=== PATIENT | male | born 1945 | race Two or more races ===

== ENCOUNTER 2018-03-09 10:12 | Inpatient (IN) | payer MEDICARE, OTHER ==
[~2018-03-09] VITALS: Ht 162.6 cm; Wt 56.2 kg
[~2018-03-09 10:12] MED LIST: ALEN70TA45 PO; ASPI-605 PO; ATEN25TA PO; ATOR20TA PO; BENA20TA9 PO; DEXL60CA3 PO; DUTA0.5C PO; GABA-532 PO; IBUP-1957 PO; ISOS30TA6 PO; TAMS0.4C34 PO
--- NOTE | 2018-03-09 10:15 | NUR ---
PT BIB C/O PAIN DURING URINATION, +HEMATURIA, HX OF ENLARGE PROSTATE, PT IS AAOX4, NOT IN RESPIRATORY DISTRESS, KEPT RESTED AND COMFORTABLE, URINE COLLECTED AND SENT TO LAB, WILL CONTINUE TO MONITOR.
--- NOTE | 2018-03-09 10:18 | NUR ---
LABS DRAWNED AND SENT TO LAB.
[2018-03-09] MEDS ORDERED: LIDOCAINE 2% JEL UROJET 10 ML MM ONE ×2 (10:30→10:35)
[2018-03-09 10:36] LABS: BASOPHILS # (AUTO) 0.1 /CMM (0.0-0.2); BASOPHILS % (AUTO) 0.2 % (0.0-2.0); HEMATOCRIT 42 % (39-51); LYMPHOCYTES # (AUTO) 0.9 /CMM (0.8-4.8); LYMPHOCYTES % (AUTO) 2.8 % (20.0-44.0); MEAN CORPUSCULAR HGB CONC 33 g/dl (31.0-36.0); MEAN CORPUSCULAR VOLUME 96 fL (80-96); MONOCYTES # (AUTO) 1.3 /CMM (0.1-1.30); MONOCYTES % (AUTO) 4.2 % (2.0-12.0); NEUTROPHILS # (AUTO) 28.9 /CMM (1.8-8.9); NEUTROPHILS % (AUTO) 92.8 % (43.0-81.0); PLATELET COUNT (AUTO) 517 /CMM (150-450); RED BLOOD CELL COUNT(AUTO) 4.41 MIL/uL (4.5-6.0)
[2018-03-09 10:36] LABS: APPEARANCE,URINE Cloudy (CLEAR); BILIRUBIN,URINE Negative (NEGATIVE); BLOOD, URINE Large Ery/uL (NEGATIVE); COLOR,URINE Yellow (YELLOW); KETONES,URINE 40 (NEGATIVE); LEUKOCYTE ESTERASE ,URINE Small (NEGATIVE); NITRITE, URINE Negative (NEGATIVE); PH,URINE 5.5 (5.0-8.0); PROTEIN,URINE 30 mg/dl (NEGATIVE); UGLUCOSE Negative (NEGATIVE); UROBILINOGEN,URINE 0.2 EU/dL (0.2)
[2018-03-09 10:39] LABS: WHITE BLOOD COUNT (AUTO) 31.1 K/uL (4.3-11.0)
[2018-03-09 10:44] LABS: CALCIUM, SERUM 8.7 mg/dL (8.5-10.1); CREATININE 0.8 mg/dL (0.6-1.3); POTASSIUM 3.9 mmol/L (3.5-5.1)
[2018-03-09 10:56] LABS: BACTERIA,URINE Many /HPF (None Seen); SQUAMOUS EPITHELIAL CELL,UR Few /HPF (None Seen); WBC,URINE 21-50 /HPF (0-3)
[2018-03-09] MEDS ORDERED: ACETAMINOPHEN ES 500 MG TABLET PO ONE (11:00)
[2018-03-09] MEDS ORDERED: PIPERACILLIN /TAZOBACTAM 3.375 G in IV D5W 50 ML IV ONE (11:00)
[2018-03-09] MEDS ORDERED: IV NS 0.9% 1,000 ML BAG IV ONE ×2 (11:00)
[2018-03-09] MEDS ORDERED: ACETAMINOPHEN ES 500 MG TABLET ONE (11:02)
[2018-03-09 11:19] LABS: BAND % (MANUAL) 2 % (0.0-5.0); LYMPHOCYTES % (MANUAL) 3 % (16-48); MONOCYTES % (MANUAL) 5 % (0-11.0); NEUTROPHILS % (MANUAL) 90 (42-76)
--- NOTE | 2018-03-09 11:19 | NUR ---
RODBUSTER AT BEDSIDE.
[2018-03-09 11:26] LABS: ALANINE AMINOTRANSFERASE 38 U/L (12-78); ALBUMIN 3.3 g/dL (3.4-5.0); ALKALINE PHOSPHATASE 106 U/L (46-116); ASPARTATE AMINOTRANSFERASE 19 U/L (15-37); BILIRUBIN,DIRECT 0.2 mg/dL (0.0-0.2); TOTAL PROTEIN, SERUM 7.7 g/dL (6.4-8.2)
[2018-03-09] MEDS ORDERED: OMEG-167 PO (11:52)
--- NOTE | 2018-03-09 12:12 | NUR ---
URINARY OUTPUT OF 35OML REFERRED TO DR. CRUZ.
--- NOTE | 2018-03-09 12:12 | NUR ---
Chika davis in ED - 03/09/18 at 1212 by QUAN URINARY OUTPUT OF 35OML REFERRED TO DR. CRUZ.
--- NOTE | 2018-03-09 13:35 | NUR ---
CALLED [facility]- POWER SHOVEL OPERATOR HELPER PEREZ FOR THIS PATIENT.
--- NOTE | 2018-03-09 13:42 | NUR ---
CALLED NURSING SUP FOR MED SURG BED FOR THIS PATIENT.
--- NOTE | 2018-03-09 13:53 | NUR ---
PT ADMIT TO ROOM 326-1 MED SURG DX PYELONEPHRITIS ADMITTING MARIAH TODD
--- NOTE | 2018-03-09 14:26 | NUR ---
REPORT GIVEN TO MARTY GUILLEN FOR VIDHYA.
--- NOTE | 2018-03-09 14:33 | NUR ---
MS substance abuse prevention coordinator Note Patient received via rsan antonio in stable condition via ED, c/o urinary retention. Patient is currently awake and resting in bed. Alert and oriented x 4. Primarily Azeri speaking. Able to make needs known, no signs of distress at this time. Complains of bilateral flank pain. Respirations even and unlabored, saturating on room air. Peripheral IV to the left AC 18 gauge, intact, patent and saline locked. 16 Fr [address] catheter in place, intact and patent, draining clear, yellow urine. Skin assessment completed and intact. Patient's personal belongings accounted for and acknowledged via form. Will carry out admission orders. Safety and Fall precautions in place: bed in lowest and locked position, side rails up x2, call light and personal possessions within reach. Patient and family oriented to room and safety measures, patient verbalized understanding of safety measures and current plan of care. Family member currently at bedside. Will continue to monitor and intervene as needed.
[2018-03-09 14:45] VITALS: BP 168/73
[2018-03-09 15:00] VITALS: BP 162/68
[2018-03-09] MEDS ORDERED: ALENDRONATE 70 MG TABLET PO SCH (15:00)
[2018-03-09] MEDS ORDERED: HYDROCODONE/APAP 10/325MG 1 EA TABLET PO PRN (15:00)
[2018-03-09] MEDS ORDERED: Z GUARD REMEDY 2 OZ OINT TP PRN (15:00)
[2018-03-09] MEDS ORDERED: GABAPENTIN 100 MG CAPSULE PO PRN (15:00)
[2018-03-09] MEDS ORDERED: ONDANSETRON HCL/PF 4 MG/2 ML VIAL IVP PRN (15:00)
[2018-03-09] MEDS ORDERED: ZOLPIDEM TARTRATE 5 MG TABLET PO PRN (15:00)
[2018-03-09 16:00] VITALS: BP 162/68
[2018-03-09] MEDS ORDERED: CEFTRIAXONE 1 G in IV D5W 50 ML IV SCH (16:00)
--- NOTE | 2018-03-09 16:00 | NUR ---
MS WILMER Note Patient BP on admission to unit of 168/73, follow-up BP of 162/68. Dr. Nagel notified of high BP, ordered Norvasc 5 mg PO now and Norvasc 5 mg PO daily for HTN. Noted and will carry out. Addendum: 03/09/18 at 1939 by RACHEL NAJERA RN After medication given, BP was 142/68.
[2018-03-09] MEDS ORDERED: AMLODIPINE BESYLATE 5 MG TABLET PO ONE (16:30)
[2018-03-09 19:00] VITALS: BP 142/68
--- NOTE | 2018-03-09 19:00 | NUR ---
MS RN Closing Note Patient is currently asleep, resting in bed but easily arousable to name. Alert and oriented x 4. Primarily Guatemalan speaking. Able to make needs known, no complaints of pain or signs of distress at this time. Respirations even and unlabored, saturating on room air. Peripheral IV to the left AC 18 gauge, intact, patent and running NS at 75 ml/hr. Horne catheter in place, intact and patent, draining clear, yellow urine: 1,425 ml out since patient came from ED. All due medication given and admission orders carried out. Pain managed with PRN medications. Safety and Fall precautions in place: bed in lowest and locked position, side rails up x2, call light and personal possessions within reach. Patient verbalized understanding of safety measures and current plan of care. Family member, Lucy (spouse) currently at bedside. Will endorse to night time babysitter RN for continuity of care.
--- NOTE | 2018-03-09 19:42 | NUR ---
MS/RN OPENING NOTES RECEIVED PATIENT IN BED, ALERT, ORIENTED X3, ABLE TO FOLLOW SIMPLE COMMANDS, CAN UNDERSTAND SIMPLE INSTRUCTIONS , RESPIRATIONS EVEN AND UNLABORED, SKIN WARM TO TOUCH, NO PAIN REPORTED AND OBSERVED AT THIS TIME., WILL MONITOR. CALL LIGHTS WITHIN REACH, BED LOCKED WILL MONITOR., ON ANG CATHETER DRAINING URINE. WILL MONITOR FOR ANY S/S OF URINE RETENTION OR ANY CHANGES.
[2018-03-09 19:56] VITALS: BP 142/64
[2018-03-09 19:59] VITALS: BP 142/64
[2018-03-09] MEDS: ATORVASTATIN 10 MG TABLET PO SCH (21:01)
[2018-03-09] MEDS: ACETAMINOPHEN 325 MG TABLET PO PRN (21:01)
[2018-03-10 04:02] VITALS: BP 142/64
[2018-03-10] MEDS: IV NS 0.9% 1,000 ML IV PRN ×2 (05:17→18:31)
--- NOTE | 2018-03-10 06:20 | NUR ---
326-1 MS/RN NOTES PATIENT ALERT, ORIENTED, ABLE TO SLEEP DURING THE NIGHT, CAM AND COOPERATIVE TO CARE, CALL LIGTHS WITHIN REACH, BED LOCKED, KEEP COMFORTABLE.
[2018-03-10 07:32] LABS: EOSINOPHILS % (AUTO) 0.1 % (0.0-6.0); HEMATOCRIT 35 % (39-51); HEMOGLOBIN 11.8 g/dL (13.5-17.5); LYMPHOCYTES # (AUTO) 0.9 /CMM (0.8-4.8); LYMPHOCYTES % (AUTO) 2.8 % (20.0-44.0); MEAN CORPUSCULAR HGB CONC 33 g/dl (31.0-36.0); MEAN CORPUSCULAR VOLUME 95 fL (80-96); MONOCYTES # (AUTO) 1.4 /CMM (0.1-1.30); MONOCYTES % (AUTO) 4.3 % (2.0-12.0); NEUTROPHILS % (AUTO) 92.8 % (43.0-81.0); PLATELET COUNT (AUTO) 407 /CMM (150-450); RED BLOOD CELL COUNT(AUTO) 3.75 MIL/uL (4.5-6.0)
--- NOTE | 2018-03-10 07:34 | NUR ---
MS RN Opening Note Patient is currently asleep, resting in bed but easily arousable to name. Alert and oriented x 4. Primarily Singaporean speaking. Able to make needs known, no complaints of pain or signs of distress at this time. Respirations even and unlabored, saturating on room air. Peripheral IV to the left AC 18 gauge, intact, patent and running NS at 75 ml/hr. Horne catheter in place, intact and patent, draining clear, yellow urine. Safety and Fall precautions in place: bed in lowest and locked position, side rails up x2, call light and personal possessions within reach. Patient verbalized understanding of safety measures and current plan of care. Will continue to monitor and intervene as needed.
[2018-03-10 07:44] LABS: WHITE BLOOD COUNT (AUTO) 33.4 K/uL (4.3-11.0)
[2018-03-10 07:52] LABS: ALBUMIN 2.5 g/dL (3.4-5.0); BILIRUBIN,TOTAL 1.3 mg/dL (0.2-1.0); CALCIUM, SERUM 8.1 mg/dL (8.5-10.1); CREATININE 0.7 mg/dL (0.6-1.3); PHOSPHORUS 1.9 mg/dL (2.5-4.9); POTASSIUM 3.5 mmol/L (3.5-5.1); TOTAL PROTEIN, SERUM 6.4 g/dL (6.4-8.2)
[2018-03-10 07:55] LABS: THYROID STIMULATING HORMONE 0.692 uIU/mL (0.358-3.74)
[2018-03-10 08:00] VITALS: BP 137/67
[2018-03-10 08:11] VITALS: BP 137/67
[2018-03-10 08:17] LABS: BAND % (MANUAL) 1 % (0.0-5.0); LYMPHOCYTES % (MANUAL) 4 % (16-48); MONOCYTES % (MANUAL) 4 % (0-11.0); NEUTROPHILS % (MANUAL) 91 (42-76)
[2018-03-10] MEDS: TAMSULOSIN 0.4 MG CAP.SR.24H PO SCH (08:35)
[2018-03-10] MEDS: DUTASTERIDE (0.5 MG) 0.5 MG CAPSULE PO SCH (08:35)
[2018-03-10] MEDS: ASPIRIN EC 81 MG TABLET.DR PO SCH (08:35)
[2018-03-10] MEDS: AMLODIPINE BESYLATE 5 MG TABLET PO SCH (08:36)
[2018-03-10] MEDS: ISOSORBIDE MONONITRATE (30MG) 30 MG TAB.SR.24H PO SCH (08:36)
[2018-03-10] MEDS: ATENOLOL 25 MG TABLET PO SCH (08:36)
[2018-03-10] MEDS: BENAZEPRIL HCL 20 MG TABLET PO SCH (08:37)
[2018-03-10] MEDS: ACETAMINOPHEN 325 MG TABLET PO PRN (11:45)
[2018-03-10] MEDS: MEROPENEM 1 G in IV NS 0.9% 100 ML IV SCH (12:40)
[2018-03-10] MEDS ORDERED: K PHOS NEUTRAL 250 MG TABLET PO ONE (15:00)
[2018-03-10 16:00] VITALS: BP 95/47
[2018-03-10 16:07] VITALS: BP 95/47
--- NOTE | 2018-03-10 18:18 | NUR ---
MS RN Closing Note Patient is currently asleep, resting in bed but easily arousable to name. Alert and oriented x 4. Primarily Vietnamese speaking. Able to make needs known, no complaints of pain or signs of distress at this time. Respirations even and unlabored, saturating on room air. Peripheral IV to the left AC 18 gauge, intact, patent and running NS at 75 ml/hr. Horne catheter in place, intact and patent, draining clear, yellow urine. No fever this shift. At 1600, BP of 85/46 and recheck of 95/47, placed patient in Trendelenburg position and increased fluids to 100 ml/hr. BP recheck of 105/55, patient asymptomatic. Safety and Fall precautions in place: bed in lowest and locked position, side rails up x2, call light and personal possessions within reach. Patient verbalized understanding of safety measures and current plan of care. Family (son - Misha) currently at bedside. Will endorse to cnc machinist 2nd shift RN for continuity of care.
--- NOTE | 2018-03-10 19:20 | NUR ---
MS RN OPENING NOTES Received patient asleep on supine position on bed, easily arouse to name calling. With patent peripheral IV line LAC G#18 with NS infusing well @ 75ml/hr as ordered. With patent indwelling FC with clear yellow urine output. Denies discomfort at this time. No SOB/respiratory distress noted. Call light within easy reach. Will continue to monitor accordingly.
[2018-03-10 20:00] VITALS: BP 113/56
[2018-03-10] MEDS: ATORVASTATIN 10 MG TABLET PO SCH (21:22)
--- NOTE | 2018-03-10 23:23 | NUR ---
MS RN NOTES Patient asleep on supine position on bed with patent IV line infusing well as ordered. Breathing even and unlabored with visible movement with respiration. Endorsed to WILMER Burnham for continuity of care.
[2018-03-11] MEDS: MEROPENEM 1 G in IV NS 0.9% 100 ML IV SCH ×2 (01:01→12:39)
--- NOTE | 2018-03-11 06:11 | NUR ---
RN MS CLOSING NOTES PT REMAINS IN BED, SLEEPING EASILY AROUSED TO NAME CALL, BREATHING EVEN AND UNLABORED ON RA, NO COUGH OR CONGESTION, NO COMPLAINT OF PAIN OR DISCOMFORT AT THIS TIME. IV ACCESS ON THE L AC #18 WITH NS @75ML/HR AND TOLERATING. ANG CATH IN PLACE AND COLLECTING, CLEAR YELLOW NO SEDIMENTS, TOTAL OUTPUT OF 1600ML. BED IN LOWEST LOCKED POSITION, CALL LIGHT WITHIN REACH AT ALL TIMES, NO SIGNIFICANT CHANGE IN CONDITION DURING SHIFT, WILL ENDORSE TO DAY NURSE FOR VIDHYA
[2018-03-11 07:34] LABS: CALCIUM, SERUM 7.4 mg/dL (8.5-10.1); CREATININE 0.7 mg/dL (0.6-1.3); PHOSPHORUS 1.9 mg/dL (2.5-4.9); POTASSIUM 3.2 mmol/L (3.5-5.1)
--- NOTE | 2018-03-11 07:55 | NUR ---
MS RN Opening Note Patient is currently asleep, resting in bed but easily arousable to name. Alert and oriented x 4. Primarily Icelandic speaking. Able to make needs known, no complaints of pain or signs of distress at this time. Respirations even and unlabored, saturating on room air. Peripheral IV to the left AC 18 gauge, intact, patent and running NS at 75 ml/hr. Horne catheter in place, intact and patent, draining clear, yellow urine. Safety and Fall precautions in place: bed in lowest and locked position, side rails up x2, call light and personal possessions within reach. Patient verbalized understanding of safety measures and current plan of care. Family to visit bedside later this shift. Will continue to monitor and intervene as needed.
[2018-03-11 08:00] VITALS: BP 126/65
[2018-03-11] MEDS: ISOSORBIDE MONONITRATE (30MG) 30 MG TAB.SR.24H PO SCH (09:00)
[2018-03-11] MEDS: BENAZEPRIL HCL 20 MG TABLET PO SCH (09:00)
[2018-03-11] MEDS: ASPIRIN EC 81 MG TABLET.DR PO SCH (09:26)
[2018-03-11] MEDS: DUTASTERIDE (0.5 MG) 0.5 MG CAPSULE PO SCH (09:26)
[2018-03-11] MEDS: TAMSULOSIN 0.4 MG CAP.SR.24H PO SCH (09:26)
[2018-03-11] MEDS: AMLODIPINE BESYLATE 5 MG TABLET PO SCH (09:29)
[2018-03-11] MEDS: ATENOLOL 25 MG TABLET PO SCH (09:30)
[2018-03-11] MEDS: POTASSIUM CHLORIDE 20 MEQ TAB.PRT.SR PO SCH ×2 (11:27→12:38)
[2018-03-11] MEDS ORDERED: K PHOS NEUTRAL 250 MG TABLET PO ONE (12:00)
[2018-03-11 16:00] VITALS: BP 125/64
[2018-03-11 16:06] LABS: BASOPHILS # (AUTO) 0.1 /CMM (0.0-0.2); BASOPHILS % (AUTO) 0.4 % (0.0-2.0); HEMATOCRIT 32 % (39-51); HEMOGLOBIN 10.7 g/dL (13.5-17.5); LYMPHOCYTES % (AUTO) 4.3 % (20.0-44.0); MEAN CORPUSCULAR HGB CONC 34 g/dl (31.0-36.0); MEAN CORPUSCULAR VOLUME 96 fL (80-96); MONOCYTES # (AUTO) 1.1 /CMM (0.1-1.30); MONOCYTES % (AUTO) 4.8 % (2.0-12.0); NEUTROPHILS # (AUTO) 20.4 /CMM (1.8-8.9); NEUTROPHILS % (AUTO) 90.5 % (43.0-81.0); PLATELET COUNT (AUTO) 399 /CMM (150-450); WHITE BLOOD COUNT (AUTO) 22.6 K/uL (4.3-11.0)
[2018-03-11 16:28] LABS: FREE PSA 0.12 ng/mL (0.00-45); PROSTATE SPECIFIC ANTIGEN SCR 3.29 ng/mL (0.00-4.00)
[2018-03-11] MEDS: CEFTRIAXONE 1 G in IV D5W 50 ML IV SCH (16:31)
[2018-03-11] MEDS: ACETAMINOPHEN 325 MG TABLET PO PRN (16:42)
--- NOTE | 2018-03-11 18:45 | NUR ---
MS RN Closing Note Patient is currently asleep, resting in bed but easily arousable to name. Alert and oriented x 4. Primarily Sudanese speaking. Able to make needs known, no complaints of pain or signs of distress at this time. Respirations even and unlabored, saturating on room air. Peripheral IV to the left AC 18 gauge, intact, patent and running NS at 75 ml/hr. Horne catheter in place, intact and patent, draining clear, yellow urine: 1150 ml this shift. Mild fever in afternoon, gave PRN Tylenol 650 mg per MAY. Safety and Fall precautions in place: bed in lowest and locked position, side rails up x2, call light and personal possessions within reach. Patient verbalized understanding of safety measures and current plan of care. Will endorse to machinist 2nd shift RN for continuity of care.
--- NOTE | 2018-03-11 19:05 | NUR ---
WILMER ZAPATA NOTES RECEIVED PATIENT IN BED AWAKE ALERT AND ORIENTED X 4, RESPIRATIONS EVEN AND UNLABORED WITH EQUAL RISE AND FALL OF CHEST,DENIES ANY PAIN OR DISCOMFORT AT THIS TIME, ANG CATHETER INTACT AND PROPERLY DRAINING, NOTED URINE YELLOW, CLEAR, IV SITE TO LEFT AC #18 G INTACT AND PATENT, NO REDNESS, NO INFILTRATION PRESENT, IVF RUNNING ORDERED, PATIENT REMAINS AFEBRILE AT THIS TIME 98.5. WILL CONTINUE TO MONITOR FOR ANY CHANGES. SAFETY PRECAUTIONS IN PLACE, LOW BED AND LOCKED, CALL LIGHT KEPT WITHIN REACH, ANG CATHETER WITH PROPER ALIGNMENT, ORIENTED TO STAFF, FLUIDS OFFERED, ALL NEEDS ATTENDED AT THIS TIME WILL CONTINUE TO MONITOR THROUGHOUT SHIFT. REMAINS COMFORTABLE. Addendum: 03/12/18 at 0624 by MAUREEN DOZIER RN RN MS OPENING NOTES
[2018-03-11 20:00] VITALS: BP 102/46
[2018-03-11 20:25] VITALS: BP 100/53
[2018-03-11] MEDS: ATORVASTATIN 10 MG TABLET PO SCH (22:34)
[2018-03-12] MEDS: ACETAMINOPHEN 325 MG TABLET PO PRN ×2 (00:38→15:29)
--- NOTE | 2018-03-12 00:38 | NUR ---
RN MS NOTES PATIENT C/O HEADACHE 06/01 REQUESTING FOR PAIN MEDICATION TYLENOL OFFERED PATIENT AGREED STATES " PAIN IS LITTLE". TYLENOL 650MG GIVEN ORDERED PRN WILL CONTINUE TO MONITOR.
[2018-03-12] MEDS: IV NS 0.9% 1,000 ML IV PRN ×2 (01:19→15:32)
--- NOTE | 2018-03-12 06:20 | NUR ---
RN MS CLOSING NOTES PATIENT IN BED SLEEPING BUT EASILY AROUSABLE, RESPIRATIONS EVEN AND UNLABORED WITH EQUAL RISE AND FALL OF CHEST, DENIES ANY PAIN OR DISCOMFORT AT THIS TIME, TYLENOL FOR HEADACHE WAS EFFECTIVE, PATIENT SLEPT WELL AT NIGHT, ANG CATHETER INTACT AND DRAINING URINE YELLOW, TOILETING OFFERED, OFFERED FACE CLEANING PATIENT REFUSED AT THIS TIME , IV SITE TO LEFT AC #18 G INTACT AND PATENT, IVF RUNNING ORDERED, PATIENT WAS AFEBRILE THROUGHOUT SHIFT, FLUIDS OFFERED TOLERATED, SAFETY PRECAUTIONS IN PLACE, ALL NEEDS WERE ATTENDED WILL CONTINUE TO MONITOR AND ENDORSE TO NEXT SHIFT, PATIENT REMAINS COMFORTABLE.
[2018-03-12 07:18] LABS: BASOPHILS % (AUTO) 0.3 % (0.0-2.0); EOSINOPHILS % (AUTO) 0.4 % (0.0-6.0); HEMATOCRIT 34 % (39-51); HEMOGLOBIN 11.6 g/dL (13.5-17.5); LYMPHOCYTES # (AUTO) 0.6 /CMM (0.8-4.8); LYMPHOCYTES % (AUTO) 4.6 % (20.0-44.0); MEAN CORPUSCULAR HGB CONC 34 g/dl (31.0-36.0); MEAN CORPUSCULAR VOLUME 95 fL (80-96); MONOCYTES # (AUTO) 0.8 /CMM (0.1-1.30); MONOCYTES % (AUTO) 5.5 % (2.0-12.0); NEUTROPHILS # (AUTO) 12.4 /CMM (1.8-8.9); NEUTROPHILS % (AUTO) 89.2 % (43.0-81.0); PLATELET COUNT (AUTO) 435 /CMM (150-450); RED BLOOD CELL COUNT(AUTO) 3.61 MIL/uL (4.5-6.0)
--- NOTE | 2018-03-12 07:29 | NUR ---
RN OPENING NOTES PT RECEIVED IN BED AT LOWEST AND LOCKED POSITION WITH SIDE RAILS UPX2, A/O X4, NO S/S OF PAIN OR DISTRESS NOTED AT THIS TIME, BREATHING EVEN AND UNLABORED, IV PATENT AND INTACT, SAFETY PRECAUTIONS IN PLACE, CALL LIGHT WITHIN REACH, WILL MONITOR ACCORDINGLY
[2018-03-12 07:32] LABS: CALCIUM, SERUM 7.6 mg/dL (8.5-10.1); CREATININE 0.7 mg/dL (0.6-1.3); MAGNESIUM 1.6 mg/dL (1.8-2.4); PHOSPHORUS 1.9 mg/dL (2.5-4.9); POTASSIUM 3.6 mmol/L (3.5-5.1)
[2018-03-12 08:00] VITALS: BP 130/68
[2018-03-12] MEDS: ASPIRIN EC 81 MG TABLET.DR PO SCH (08:44)
[2018-03-12] MEDS: TAMSULOSIN 0.4 MG CAP.SR.24H PO SCH (08:44)
[2018-03-12] MEDS: BENAZEPRIL HCL 20 MG TABLET PO SCH (08:44)
[2018-03-12] MEDS: DUTASTERIDE (0.5 MG) 0.5 MG CAPSULE PO SCH (08:44)
[2018-03-12] MEDS: ATENOLOL 25 MG TABLET PO SCH (08:45)
[2018-03-12] MEDS: AMLODIPINE BESYLATE 5 MG TABLET PO SCH (08:46)
[2018-03-12] MEDS: ISOSORBIDE MONONITRATE (30MG) 30 MG TAB.SR.24H PO SCH (08:47)
[2018-03-12] MEDS: Magnesium 1GM/D5W 100ML PREMIX 100 ML IV SCH ×2 (12:28→13:45)
--- NOTE | 2018-03-12 13:15 | NUR ---
RN NOTE ANG WAS D/C UPON DOCTOR ORDER, WAS INFORMED TO PERFORM BLADDER SCAN AND STRAIGHT CATH Q6H IF PT HAS A RESIDUAL >300
[2018-03-12] MEDS ORDERED: K PHOS NEUTRAL 250 MG TABLET PO ONE (15:00)
[2018-03-12] MEDS: CEFTRIAXONE 1 G in IV D5W 50 ML IV SCH (15:09)
--- NOTE | 2018-03-12 15:44 | NUR ---
RN NOTES PT WAS NOTED TO HAVE A FEVER OF 101.7, COOLING MEASURES IMPLEMENTED AND TYLENOL GIVEN, WILL MONITOR ACCORDINGLY
[2018-03-12 15:50] VITALS: BP 116/58
--- NOTE | 2018-03-12 18:39 | NUR ---
RN CLOSING NOTES PT RECEIVED IN BED AT LOWEST AND LOCKED POSITION WITH SIDE RAILS UPX2, A/O X4, NO S/S OF PAIN OR DISTRESS NOTED AT THIS TIME, BREATHING EVEN AND UNLABORED, IV PATENT AND INTACT, SAFETY PRECAUTIONS IN PLACE, CALL LIGHT WITHIN REACH, ALL NEEDS WERE ATTENDED TO, WILL ENDORSE TO FOOD AND BEVERAGE OPERATIONS MANAGER RN FOR CONTINUITY OF CARE
--- NOTE | 2018-03-12 19:30 | NUR ---
RN NOTES RECEIVED PT. AWAKE ON BED, A/OX4, AMBULATORY, ENGLISH/IRANIAN SPEAKING, AT BEDSIDE, DENIES PAIN, NO OSB, CALL LIGHT WITHIN REACH, [id number], CONTINUE TO MONITOR
[2018-03-12 20:00] VITALS: BP 116/57
[2018-03-12 20:52] VITALS: BP 116/57
[2018-03-12] MEDS: ATORVASTATIN 10 MG TABLET PO SCH (21:23)
--- NOTE | 2018-03-13 05:00 | NUR ---
RN NOTES CHECKED PT. THROUGH BLADDER SCANNER IF HE HAS RESIDUAL (URINE).. PT. HAS 96ML RESIDUAL
[2018-03-13] MEDS: IV NS 0.9% 1,000 ML IV PRN (06:16)
--- NOTE | 2018-03-13 06:35 | NUR ---
RN NOTES AWAKE DENIES PAIN, NO SOB, CALL LIGHT WITHIN REACH, [id number], PT. NEEDS ATTENDED
[2018-03-13 07:21] LABS: BASOPHILS % (AUTO) 0.2 % (0.0-2.0); EOSINOPHILS % (AUTO) 0.8 % (0.0-6.0); HEMATOCRIT 33 % (39-51); HEMOGLOBIN 11.1 g/dL (13.5-17.5); LYMPHOCYTES # (AUTO) 0.7 /CMM (0.8-4.8); LYMPHOCYTES % (AUTO) 7.5 % (20.0-44.0); MEAN CORPUSCULAR HGB CONC 34 g/dl (31.0-36.0); MEAN CORPUSCULAR VOLUME 95 fL (80-96); MONOCYTES # (AUTO) 0.6 /CMM (0.1-1.30); MONOCYTES % (AUTO) 7.3 % (2.0-12.0); NEUTROPHILS # (AUTO) 7.5 /CMM (1.8-8.9); NEUTROPHILS % (AUTO) 84.2 % (43.0-81.0); PLATELET COUNT (AUTO) 417 /CMM (150-450); RED BLOOD CELL COUNT(AUTO) 3.48 MIL/uL (4.5-6.0); WHITE BLOOD COUNT (AUTO) 8.9 K/uL (4.3-11.0)
[2018-03-13 07:24] LABS: CALCIUM, SERUM 7.2 mg/dL (8.5-10.1); CREATININE 0.7 mg/dL (0.6-1.3); MAGNESIUM 2.3 mg/dL (1.8-2.4); PHOSPHORUS 1.7 mg/dL (2.5-4.9); POTASSIUM 3.4 mmol/L (3.5-5.1)
[2018-03-13 08:00] VITALS: BP 114/57
[2018-03-13] MEDS: TAMSULOSIN 0.4 MG CAP.SR.24H PO SCH (08:39)
[2018-03-13] MEDS: ASPIRIN EC 81 MG TABLET.DR PO SCH (08:39)
[2018-03-13] MEDS: DUTASTERIDE (0.5 MG) 0.5 MG CAPSULE PO SCH (08:39)
[2018-03-13] MEDS: ATENOLOL 25 MG TABLET PO SCH (08:40)
[2018-03-13] MEDS: BENAZEPRIL HCL 20 MG TABLET PO SCH (08:41)
[2018-03-13] MEDS: AMLODIPINE BESYLATE 5 MG TABLET PO SCH (08:42)
[2018-03-13 08:44] VITALS: BP 114/57
[2018-03-13] MEDS: ISOSORBIDE MONONITRATE (30MG) 30 MG TAB.SR.24H PO SCH (08:44)
[2018-03-13] MEDS ORDERED: SULF1TAB48 PO (10:42)
[2018-03-13] MEDS ORDERED: POTASSIUM CHLORIDE 20 MEQ TAB.PRT.SR PO SCH (11:00)
[2018-03-13] MEDS ORDERED: POTASSIUM CHLORIDE 10 MEQ TABLET.SA PO SCH (11:00)
[2018-03-13] MEDS ORDERED: NEUTRA PHOS 1 POWD.PACKET PO ONE (11:00)
--- NOTE | 2018-03-13 13:30 | NUR ---
DISCHARGE NOTE PT WAS D/C AT THIS TIME IN MEDICALLY STABLE CONDITION BACK HOME WITH HIS SON, ALL DISCHARGE PAPERWORK WAS DISCUSSED WITH THE PATIENT AND SON, PT SIGNED DISCHARGE PAPERWORK AND BELONGING LIST, WAS INFORMED TO FOLLOW UP WITH PRIMARY IN 1 WEEK AND HIS UROLOGIST SCHEDULED, PT SKIN WAS DRY AND INTACT WITH NO WOUNDS NOTED, HE LEFT A/O X4, BREATHING EVEN AND UNLABORED WITH NO S/S OF DISTRESS NOTED. IV AND ID BAND WERE REMOVED, HE WAS TAKEN DOWN BY RYAN OROZCO VIA WHEELCHAIR TO THEIR PRIVATE CAR. ALL NEEDS WERE ATTENDED TO DURING HIS STAY.
== END 2018-03-13 13:30 | disposition home or self-care (01) | DRG 872 ==
LOC: ER 10:21 → MED 14:14
PROVIDERS: ADMIT Nurse Practitioner Acute Care; ATTEND Nurse Practitioner Acute Care
DX: A41.9 Sepsis, unspecified organism (principal); E87.1 Hypo-osmolality and hyponatremia; N39.0 Urinary tract infection, site not specified; N10 Acute pyelonephritis; E78.5 Hyperlipidemia, unspecified; N40.0 Benign prostatic hyperplasia without lower urinary tract symptoms; I10 Essential (primary) hypertension; I25.2 Old myocardial infarction; K21.9 Gastro-esophageal reflux disease without esophagitis; B96.20 Unspecified Escherichia coli [E. coli] as the cause of diseases classified elsewhere; E83.42 Hypomagnesemia; E87.6 Hypokalemia; I25.10 Atherosclerotic heart disease of native coronary artery without angina pectoris; R33.9 Retention of urine, unspecified; E87.70 Fluid overload, unspecified
CPT/HCPCS: 36415; 71045-TC; 76770-TC; 80048-TC; 80053-TC; 80061-TC; 80076-TC; 81000-TC; 83540-TC; 83605-TC; 83735-TC; 84100-TC; 84153-TC; 84154-TC; 84443-TC; 84484-TC; 85025-TC; 85730-TC; 87040-TC; 87081-TC; 87086-TC; 87186-TC; A4606; G0378; J0696; J2185; J2405; J2543; J3475; J3490; J7030; J7060; Z7610

== ENCOUNTER 2018-05-13 11:22 | Inpatient (IN) | payer MEDICARE, OTHER ==
[~2018-05-13] VITALS: Ht 162.6 cm; Wt 58.5 kg
[~2018-05-13 11:22] MED LIST changes: -ALEN70TA45 PO; +ALEN70TA6 PO; +OMEG-167 PO; +SULF1TAB48 PO
--- NOTE | 2018-05-13 11:38 | NUR ---
PT BIB SELF C/O HEADACHE x 2 DAYS, WORST TODAY, 7/10 PS, PT IS AAOX4 DANISH SPEAKING, V/S STABLE, HOOKED TO MONITOR, KEPT RESTED AND COMFORTABLE. WILL CONTINUE TO MONITOR.
--- NOTE | 2018-05-13 12:07 | NUR ---
SEEN AND EXAMINED BY DR. DONAHUE.
--- NOTE | 2018-05-13 12:35 | NUR ---
LABS DRAWNED AND SENT TO LAB.
[2018-05-13] MEDS ORDERED: METOCLOPRAMIDE HCL 10 MG/2 ML VIAL ONE (12:41)
[2018-05-13 12:45] LABS: BASOPHILS % (AUTO) 0.5 % (0.0-2.0); EOSINOPHILS % (AUTO) 0.1 % (0.0-6.0); HEMATOCRIT 38 % (39-51); HEMOGLOBIN 12.5 g/dL (13.5-17.5); LYMPHOCYTES # (AUTO) 1.3 /CMM (0.8-4.8); LYMPHOCYTES % (AUTO) 16.2 % (20.0-44.0); MEAN CORPUSCULAR HGB CONC 33 g/dl (31.0-36.0); MEAN CORPUSCULAR VOLUME 95 fL (80-96); MONOCYTES # (AUTO) 0.7 /CMM (0.1-1.30); MONOCYTES % (AUTO) 9.2 % (2.0-12.0); NEUTROPHILS # (AUTO) 5.9 /CMM (1.8-8.9); PLATELET COUNT (AUTO) 191 /CMM (150-450); RED BLOOD CELL COUNT(AUTO) 3.97 MIL/uL (4.5-6.0)
--- NOTE | 2018-05-13 12:50 | NUR ---
RADIOLOGY AT BEDSIDE FOR XRAY. EKG DONE.
[2018-05-13 12:57] LABS: CALCIUM, SERUM 8.8 mg/dL (8.5-10.1); CARBON DIOXIDE 30 mmol/L (21-32); CHLORIDE 100 mmol/L (98-107); CREATININE 0.7 mg/dL (0.6-1.3); GLUCOSE 109 mg/dL (74-106); POTASSIUM 3.6 mmol/L (3.5-5.1); SODIUM SERUM 135 mmol/L (136-145); UREA NITROGEN, BLOOD 16 mg/dL (7-18)
[2018-05-13] MEDS ORDERED: METOCLOPRAMIDE HCL 10 MG/2 ML VIAL IV ONE (13:00)
[2018-05-13 13:02] LABS: ALANINE AMINOTRANSFERASE 36 U/L (12-78); ALBUMIN 3.2 g/dL (3.4-5.0); ALKALINE PHOSPHATASE 78 U/L (46-116); ASPARTATE AMINOTRANSFERASE 35 U/L (15-37); BILIRUBIN,DIRECT 0.2 mg/dL (0.0-0.2); BILIRUBIN,TOTAL 0.8 mg/dL (0.2-1.0); TOTAL PROTEIN, SERUM 7.1 g/dL (6.4-8.2)
[2018-05-13] MEDS ORDERED: MECLIZINE HCL 12.5 MG TABLET PO ONE (15:00)
[2018-05-13] MEDS ORDERED: MECLIZINE HCL 25 MG TABLET ONE (15:11)
--- NOTE | 2018-05-13 15:27 | NUR ---
REPORT GIVEN TO STEPHEN GUILLEN, FOR VIDHYA.
[2018-05-13 16:00] VITALS: BP_SYST 124; BP_SYST 129; BP_DIAS 71
--- NOTE | 2018-05-13 16:30 | NUR ---
FOXERMEAT MARKET MANAGER NOTES PT ARRIVED VIA GURNEY IN STABLE CONDITION ACCOMPANIED BY 2 ER STAFF. PT IS A/O X4, TURKMEN SPEAKING. PT IS AFEBRILE. RESPIRATIONS ARE EVEN AND UNLABORED, NOT IN ANY ACUTE DISTRESS NOTED. PT DENIES ANY PAIN, DIZZINESS, TINNITUS, SOB, N/V AT THIS TIME. IV SITE TO RAC G20 INTACT, NO INFILTRATION NOTED. DRESSING KEPT CLEAN AND DRY. PUPILS ARE REACTIVE TO LIGHT, BILATERAL HAND ACID CONDENSER ARE STRONG AND EQUAL. PT IS AMBULATORY. IS AT BEDSIDE. ABDOMEN IS SOFT AND NONDISTENDED, BOWEL SOUNDS ARE PRESENT IN ALL 4 QUADRANTS UPON AUSCULTATION. DENIES ANY BLADDER DISCOMFORT. SAFETY MEASURES ARE IN PLACE. BELONGINGS ARE ACCOUNTED FOR. INSTRUCTED PT TO USE CALL LIGHT WHEN ASSISTANCE IS NEEDED, CALL LIGHT IS LEFT WITHIN REACH. JHON ELDRIDGE MADE AWARE OF ADMISSION. WILL MONITOR THROUGHOUT SHIFT FOR CONTINUITY OF CARE.
[2018-05-13] MEDS ORDERED: Z GUARD REMEDY 2 OZ OINT TP PRN (17:00)
[2018-05-13] MEDS ORDERED: MAG HYDROX/AL HYDROX/SIMETH 30 ML UDC PO PRN (17:00)
[2018-05-13] MEDS ORDERED: MECLIZINE HCL 12.5 MG TABLET PO PRN (17:00)
[2018-05-13] MEDS ORDERED: ACETAMINOPHEN 325 MG TABLET PO PRN (17:00)
[2018-05-13] MEDS ORDERED: ONDANSETRON HCL/PF 4 MG/2 ML VIAL IVP PRN (17:00)
[2018-05-13] MEDS ORDERED: HYDROCODONE/APAP 5/325MG 1 EACH TABLET PO PRN (17:00)
[2018-05-13] MEDS ORDERED: MAGNESIUM HYDROXIDE 30 ML UDC PO PRN (17:00)
[2018-05-13] MEDS: IV NS 0.9% 1,000 ML IV PRN (17:31)
[2018-05-13] MEDS: ENOXAPARIN SODIUM 40 MG/0.4 ML DISP.SYRIN SQ SCH (17:38)
--- NOTE | 2018-05-13 18:14 | NUR ---
VOLUNTEER FIREFIGHTER NOTES-- RADID INFLUENZA SWAB DONE.
--- NOTE | 2018-05-13 18:30 | NUR ---
PEGA DEVELOPER CLOSING NOTES NEEDS MET AND RENDERED. PT IS A/O X4, AFEBRILE. RESPIRATIONS ARE EVEN AND UNLABORED, NOT IN ANY ACUTE DISTRESS NOTED. PT DENIES ANY PAIN, DIZZINESS, HEADACHE, NO SOB, N/V. IV SITE TO RAC INTACT, NO INFILTRATION NOTED. DRESSING KEPT CLEAN AND DRY. IV FLUIDS RUNNING AT 60ML/HR, TOLERATING WELL. SAFETY MEASURES ARE IN PLACE. REMINDED PT TO USE CALL LIGHT WHEN ASSISTANCE IS NEEDED, CALL LIGHT IS LEFT WITHIN REACH. WILL ENDORSE TO NEXT SHIFT FOR CONTINUITY OF CARE.
--- NOTE | 2018-05-13 19:58 | NUR ---
PREPARED FOODS TEAM LEADER OPENING NOTES RECEIVED PATIENT IN BED AWAKE, ALERT AND ORIENTED X4, VERBALLY RESPONSIVE, ABLE TO MAKE NEEDS KNOWN. NORTH KOREAN SPEAKING. FAMILY AT BEDSIDE. BREATHING EVEN AND UNLABORED. NO SOB NOTED. TOLERATING ROOM AIR. NO COMPLAINTS OF PAIN OR DISCOMFORT. NO FACIAL GRIMACING. IV ON RIGHT AC G#20 INTACT AND PATENT. NO COMPLAINTS DIZZINESS. SKIN DRY AND WARM TO TOUCH. AFEBRILE. ALL OTHER NEEDS ATTENDED TO. SAFETY MEASURES IN PLACE. CALL LIGHT WITHIN REACH. WILL CONTINUE TO MONITOR.
[2018-05-13 20:00] VITALS: BP 134/67
[2018-05-13] MEDS ORDERED: GABAPENTIN 100 MG CAPSULE PO PRN (21:30)
[2018-05-13 22:46] LABS: APPEARANCE,URINE CLEAR (CLEAR); BILIRUBIN,URINE NEGATIVE (NEGATIVE); BLOOD, URINE TRACE-INTA Ery/uL (NEGATIVE); COLOR,URINE YELLOW (YELLOW); KETONES,URINE TRACE (NEGATIVE); LEUKOCYTE ESTERASE ,URINE TRACE (NEGATIVE); NITRITE, URINE NEGATIVE (NEGATIVE); PROTEIN,URINE NEGATIVE (NEGATIVE); UGLUCOSE NEGATIVE (NEGATIVE); UROBILINOGEN,URINE 0.2 EU/dL (0.2)
[2018-05-13 23:31] LABS: BACTERIA,URINE None seen /HPF (None Seen); HYALINE CASTS, URINE Few /LPF (None Seen); MUCUS,URINE Moderate /LPF (None Seen); SQUAMOUS EPITHELIAL CELL,UR Few /HPF (None Seen)
[2018-05-14] VITALS: BP 123/68
--- NOTE | 2018-05-14 02:00 | NUR ---
COPIER AND PRINTER FIELD TECHNICIAN NOTES PATIENT NOTED WITH PERSISTENT COUGH. NONPRODUCTIVE. PER PATIENT HE HAS BEEN COUGHING SINCE 2 DAYS AGO, MORE SO DURING THE NIGHT THAN DURING THE DAY. INFORMED PATIENT THAT I WILL INFORM MD REGARDING HIS COUGH. WILL CONTINUE TO MONITOR.
--- NOTE | 2018-05-14 02:15 | NUR ---
DATA ANALYST NOTES DIRECTOR DECISION SUPPORT FELI HERRON PAGED BACK REGARDING PATIENT'S COUGH. PER DIRECTOR DECISION SUPPORT EYAL EDMOND 5ML Q4H PRN FOR COUGH. ORDER NOTED AND CARRIED OUT.
[2018-05-14] MEDS ORDERED: GUAIFENESIN/D-METHORPHAN HB 5 ML UDC PO PRN (02:30)
--- NOTE | 2018-05-14 03:00 | NUR ---
NETWORK SECURITY OFFICER NOTES PATIENT SLEEPING COMFORTABLY. NO COUGHING NOTED. DID NOT WAKE UP PATIENT FOR COUGH MEDICATION.
[2018-05-14 04:00] VITALS: BP 126/72
[2018-05-14 06:23] VITALS: BP_SYST 126; BP_SYST 136; BP_SYST 141; BP_DIAS 70; BP_DIAS 74; BP_DIAS 75
--- NOTE | 2018-05-14 06:52 | NUR ---
FREEZER UNLOADER CLOSING NOTES PATIENT RESTING IN BED. NO ACUTE CHANGES THROUGHOUT SHIFT. BREATHING EVEN AND UNLABORED. NO SOB NOTED. TOLERATING ROOM AIR. NO COMPLAINTS OF PAIN OR DISCOMFORT. NO FACIAL GRIMACING. IV ON RIGHT AC G#20 INTACT AND PATENT WITH NS RUNNING AT 60ML/HR. NO COMPLAINTS OF DIZZINESS. SKIN DRY AND WARM TO TOUCH. AFEBRILE. ALL OTHER NEEDS ATTENDED TO. SAFETY MEASURES IN PLACE. CALL LIGHT WITHIN REACH. WILL ENDORSE TO ONCOMING NURSE FOR VIDHYA.
[2018-05-14 08:00] VITALS: BP 123/69
[2018-05-14 08:02] LABS: BASOPHILS % (AUTO) 0.3 % (0.0-2.0); EOSINOPHILS % (AUTO) 0.4 % (0.0-6.0); HEMATOCRIT 35 % (39-51); HEMOGLOBIN 11.9 g/dL (13.5-17.5); LYMPHOCYTES # (AUTO) 0.9 /CMM (0.8-4.8); MEAN CORPUSCULAR HGB CONC 34 g/dl (31.0-36.0); MEAN CORPUSCULAR VOLUME 93 fL (80-96); MONOCYTES # (AUTO) 0.6 /CMM (0.1-1.30); MONOCYTES % (AUTO) 10.1 % (2.0-12.0); NEUTROPHILS % (AUTO) 72.2 % (43.0-81.0); PLATELET COUNT (AUTO) 187 /CMM (150-450); RED BLOOD CELL COUNT(AUTO) 3.77 MIL/uL (4.5-6.0); WHITE BLOOD COUNT (AUTO) 5.6 K/uL (4.3-11.0)
[2018-05-14] MEDS: PANTOPRAZOLE 40 MG TABLET.DR PO SCH (08:23)
[2018-05-14 08:26] LABS: CALCIUM, SERUM 7.9 mg/dL (8.5-10.1); CARBON DIOXIDE 28 mmol/L (21-32); CHLORIDE 101 mmol/L (98-107); CREATININE 0.6 mg/dL (0.6-1.3); GLUCOSE 109 mg/dL (74-106); PHOSPHORUS 2.7 mg/dL (2.5-4.9); POTASSIUM 3.7 mmol/L (3.5-5.1); SODIUM SERUM 139 mmol/L (136-145); UREA NITROGEN, BLOOD 13 mg/dL (7-18)
[2018-05-14 08:30] LABS: CHOLESTEROL 94 mg/dL (<200); HDL CHOLESTEROL 36 mg/dL (40-60); LDL 48 mg/dL (0-99); THYROID STIMULATING HORMONE 0.791 uIU/mL (0.358-3.74); TRIGLYCERIDES 98 mg/dL (30-150)
[2018-05-14] MEDS ORDERED: Medication Not On Formulary EA (Omega-3 Fatty Acids/Fish Oil (Fish Oil 1,000 Mg Softgel) PO SCH (09:00)
[2018-05-14] MEDS ORDERED: Medication Not On Formulary EA (Atorvastatin Calcium (Lipitor) 20 MG) PO SCH (09:00)
[2018-05-14] MEDS: ASPIRIN EC 81 MG TABLET.DR PO SCH (09:33)
[2018-05-14] MEDS: TAMSULOSIN 0.4 MG CAP.SR.24H PO SCH (09:33)
[2018-05-14] MEDS: ATORVASTATIN 10 MG TABLET PO SCH (09:33)
[2018-05-14] MEDS: ISOSORBIDE MONONITRATE (30MG) 30 MG TAB.SR.24H PO SCH (09:34)
[2018-05-14] MEDS: ATENOLOL 25 MG TABLET PO SCH (09:34)
[2018-05-14] MEDS: DUTASTERIDE (0.5 MG) 0.5 MG CAPSULE PO SCH (09:35)
--- NOTE | 2018-05-14 13:44 | NUR ---
TEXTED DR. SAMUELS FOR MRI APPROVAL.
[2018-05-14] MEDS: CEFTRIAXONE 1 G in IV D5W 50 ML IV SCH (14:40)
[2018-05-14] MEDS: BENAZEPRIL HCL 20 MG TABLET PO SCH (15:35)
[2018-05-14 16:00] VITALS: BP 116/71
--- NOTE | 2018-05-14 18:00 | NUR ---
HAD MRI TODAY,MEDICATED X1 FOR HEADACHE WITH NORCO AND X1 WITH ROBITUSSIN FOR FREQ. COUGH.
--- NOTE | 2018-05-14 19:35 | NUR ---
RN MS OPENING NOTES RECEIVED PATIENT IN BED AWAKE, ALERT AND ORIENTED X4, VERBALLY RESPONSIVE, ABLE TO MAKE NEEDS KNOWN. TURKISH SPEAKING. BREATHING EVEN AND UNLABORED. NO SOB NOTED. TOLERATING ROOM AIR. NO COMPLAINTS OF PAIN OR DISCOMFORT. NO FACIAL GRIMACING. IV ON RIGHT AC G#20 INTACT AND PATENT. NO COMPLAINTS DIZZINESS. SKIN DRY AND WARM TO TOUCH. AFEBRILE. ALL OTHER NEEDS ATTENDED TO. SAFETY MEASURES IN PLACE. CALL LIGHT WITHIN REACH. WILL CONTINUE TO MONITOR.
[2018-05-14] MEDS: IV NS 0.9% 1,000 ML IV PRN (19:44)
[2018-05-14 20:00] VITALS: BP 115/55
[2018-05-14] MEDS: ENOXAPARIN SODIUM 40 MG/0.4 ML DISP.SYRIN SQ SCH (20:58)
[2018-05-15 05:13] VITALS: BP_SYST 131; BP_SYST 133; BP_SYST 139; BP_DIAS 71; BP_DIAS 72; BP_DIAS 73
--- NOTE | 2018-05-15 07:15 | NUR ---
PATIENT RESTING IN BED. BREATHING EVEN AND UNLABORED. NO SOB NOTED. PT ON ROOM AIR. NO COMPLAINTS OF PAIN OR DISCOMFORT. IV ON RIGHT AC G#20 INTACT AND PATENT WITH NS RUNNING AT 60ML/HR. . SKIN DRY AND WARM TO TOUCH. AFEBRILE. SAFETY MEASURES IN PLACE. CALL LIGHT WITHIN REACH. WILL CONTINUE TO MONITOR
[2018-05-15 07:30] VITALS: BP 149/78
[2018-05-15 08:00] VITALS: BP 149/78
[2018-05-15] MEDS: PANTOPRAZOLE 40 MG TABLET.DR PO SCH (09:03)
[2018-05-15] MEDS: ASPIRIN EC 81 MG TABLET.DR PO SCH (09:03)
[2018-05-15] MEDS: DUTASTERIDE (0.5 MG) 0.5 MG CAPSULE PO SCH (09:04)
[2018-05-15] MEDS: TAMSULOSIN 0.4 MG CAP.SR.24H PO SCH (09:04)
[2018-05-15] MEDS: BENAZEPRIL HCL 20 MG TABLET PO SCH (09:04)
[2018-05-15] MEDS: ISOSORBIDE MONONITRATE (30MG) 30 MG TAB.SR.24H PO SCH (09:05)
[2018-05-15] MEDS: ATORVASTATIN 10 MG TABLET PO SCH (09:05)
[2018-05-15] MEDS: ATENOLOL 25 MG TABLET PO SCH (09:05)
[2018-05-15] MEDS: CEFTRIAXONE 1 G in IV D5W 50 ML IV SCH (14:45)
[2018-05-15 16:00] VITALS: BP 101/54
[2018-05-15] MEDS: IV NS 0.9% 1,000 ML IV PRN (16:41)
[2018-05-15] MEDS ORDERED: MECL12.582 PO (16:51)
[2018-05-15] MEDS ORDERED: CEPH-570 PO (16:51)
[2018-05-15] MEDS ORDERED: ATOR80TA PO (16:51)
--- NOTE | 2018-05-15 19:00 | NUR ---
PATIENT CLEARED FOR D/C TO HOME BY . D/C PAPERWORK IS DONE, WILL ENDORSE TO NEXT SHIFT FOR VIDHYA.
--- NOTE | 2018-05-15 19:45 | NUR ---
MS/RN OPENING NOTES RECEIVED PATIENT SITTING IN BED, ABLE TO AMBULATE INDEPENDENTLY AND ALERT, ORIENTED X3, ABLE TO VERBALIZE NEEDS, DISCHARGE INSTRUCTIONS PROVIDED, INSTRED REGADING MEDICATION AND NEW MEDICATIONS TO TAKE AND FOLLOW UP WITH MD. IB BAND REMOVED IV REMOVED AND FAMILY CAME TO BRING HOME THE FATHER, DENIES PAIN ABLE TO AMBULATE AND WILL BE BROUGHT HOME BY SON VIA PRIVATE CAR. ASSISTED.BELONGINGS CHECK AND GIVEN BACK TO PATIENT.
[2018-05-18] MEDS ORDERED: ALENDRONATE 70 MG TABLET PO SCH (07:30)
== END 2018-05-15 19:45 | disposition home or self-care (01) | DRG 641 ==
LOC: ER 11:22 → TELE 15:03 → MED 05-14 09:16
PROVIDERS: ADMIT Nurse Practitioner Acute Care; ATTEND Nurse Practitioner Acute Care
DX: E86.1 Hypovolemia (principal); E44.0 Moderate protein-calorie malnutrition; N39.0 Urinary tract infection, site not specified; G93.40 Encephalopathy, unspecified; R42 Dizziness and giddiness; E87.1 Hypo-osmolality and hyponatremia; D63.8 Anemia in other chronic diseases classified elsewhere; I25.10 Atherosclerotic heart disease of native coronary artery without angina pectoris; I10 Essential (primary) hypertension; N40.0 Benign prostatic hyperplasia without lower urinary tract symptoms; I65.21 Occlusion and stenosis of right carotid artery; Z86.73 Personal history of transient ischemic attack (TIA), and cerebral infarction without residual deficits; Z83.3 Family history of diabetes mellitus; Z87.440 Personal history of urinary (tract) infections; Z79.82 Long term (current) use of aspirin; I25.2 Old myocardial infarction; E78.5 Hyperlipidemia, unspecified
CPT/HCPCS: 36415; 70450-TC; 70551-TC; 71045-TC; 80048-TC; 80061-TC; 80076-TC; 81000-TC; 83735-TC; 84100-TC; 84443-TC; 84484-TC; 85025-TC; 85730-TC; 87081-TC; 87086-TC; 87400; 93307-TC; 93880-TC; A4216; G0378; J0696; J1650; J2765; J7030; J7060; J8597

== ENCOUNTER 2018-12-14 11:11 | Emergency (ER) | payer MEDICARE, MEDICAID ==
[~2018-12-14] VITALS: Ht 162.6 cm; Wt 62.6 kg
[~2018-12-14 11:11] MED LIST changes: +ATOR80TA PO; +CEPH-570 PO; +MECL12.582 PO
--- NOTE | 2018-12-14 11:30 | NUR ---
PATIENT CAME IN TO THE ER C/O LEFT KNEE PAIN x 2 DAYS, NOTED ABSCESS 8/10 PS. ON ROOM AIR, BREATHING EVENLY AND UNLABORED, AMBULATORY WITH STEADY GAIT. WILL CONTINUE TO MONITOR ACCORDINGLY.
[2018-12-14] MEDS ORDERED: VANCOMYCIN 1 GM in IV D5W 250 ML IV ONE (12:00)
[2018-12-14 12:55] VITALS: BP 145/71
--- NOTE | 2018-12-14 13:04 | NUR ---
Patient discharged to home in stable condition. Written and verbal after care instructions given. Patient verbalizes understanding of instruction.IV removed. Catheter intact and site benign. Pressure and 4x4 applied to site. No bleeding noted.
== END 2018-12-14 13:04 | disposition home or self-care (01) ==
LOC: ER 11:11
DX: L03.116 Cellulitis of left lower limb (principal); E11.9 Type 2 diabetes mellitus without complications
CPT/HCPCS: 82962; 96365; 99283; J3370; J7060

== ENCOUNTER 2019-03-01 09:49 | Emergency (ER) | payer MEDICARE, MEDICAID ==
[~2019-03-01] VITALS: Ht 162.6 cm; Wt 61.2 kg
[~2019-03-01 09:49] MED LIST changes: +MECL-182 PO; -MECL12.582 PO
--- NOTE | 2019-03-01 13:55 | NUR ---
Ramon [place] alert danish speaking non distress @ this time noted able to ambulated non disfficulties
[2019-03-01 14:31] VITALS: BP 133/67
--- NOTE | 2019-03-01 14:32 | NUR ---
DC home instruction drupal programmer [place] EMT agrees to follow up PMD in AM
--- NOTE | 2019-03-01 14:32 | NUR ---
Patient discharged to home in stable condition. Written and verbal after care instructions given. Patient verbalizes understanding of instruction.
== END 2019-03-01 14:45 | disposition home or self-care (01) ==
LOC: ER 09:50
DX: S32.19XA Other fracture of sacrum, initial encounter for closed fracture (principal); S30.0XXA Contusion of lower back and pelvis, initial encounter; I10 Essential (primary) hypertension; Z79.82 Long term (current) use of aspirin; Z79.899 Other long term (current) drug therapy; W11.XXXA Fall on and from ladder, initial encounter; Y93.89 Activity, other specified; Y92.89 Other specified places as the place of occurrence of the external cause; Y99.8 Other external cause status
CPT/HCPCS: 72131-TC; 72192-TC

== ENCOUNTER 2020-12-21 18:59 | Emergency (ER) | payer MEDICARE, OTHER ==
[~2020-12-21] VITALS: Ht 162.6 cm; Wt 65.8 kg
[~2020-12-21 18:59] MED LIST changes: -ALEN70TA6 PO; +ALEN70TA80 PO; -ISOS30TA6 PO; +ISOS30TA86 PO
--- NOTE | 2020-12-21 19:07 | NUR ---
THE PATIENT BIBS WIT C/O L SIDED SCROTAL PAIN AND SWELLING X 3 DAYS. RATES PAIN 7/10. WILL CONTINUE TO MONITOR THE PATIENT.
--- NOTE | 2020-12-21 19:20 | NUR ---
US TECH AT THE BEDSIDE
--- NOTE | 2020-12-21 19:27 | NUR ---
REPORT GIVEN TO NURSE ADDISON
--- NOTE | 2020-12-21 19:40 | NUR ---
URINE COLLECTED SENT TO LAB
[2020-12-21 20:05] LABS: BILIRUBIN,URINE Negative (NEGATIVE); COLOR,URINE YELLOW (YELLOW); LEUKOCYTE ESTERASE ,URINE Moderate (NEGATIVE); NITRITE, URINE Negative (NEGATIVE); PH,URINE 5.5 (5.0-8.0); PROTEIN,URINE Negative (NEGATIVE); UGLUCOSE Negative (NEGATIVE); UROBILINOGEN,URINE 0.2 EU/dL (0.2)
[2020-12-21 20:11] LABS: BACTERIA,URINE 2+ /HPF (None Seen); SQUAMOUS EPITHELIAL CELL,UR Few /HPF (None Seen)
[2020-12-21] MEDS ORDERED: IBUP-1955 PO (20:15)
[2020-12-21] MEDS ORDERED: LEVO500T90 PO (20:15)
[2020-12-21] MEDS ORDERED: KETOROLAC TROMETHAMINE INJ 30 MG/ML VIAL IM ONE (20:30)
[2020-12-21] MEDS ORDERED: KETOROLAC TROMETHAMINE 15 MG/ML VIAL ONE (20:46)
--- NOTE | 2020-12-21 20:54 | NUR ---
Patient discharged to home in stable condition. Written and verbal after care instructions given. Patient verbalizes understanding of instruction. rx given
[2020-12-21 20:55] VITALS: BP 130/60
== END 2020-12-21 20:55 | disposition home or self-care (01) ==
LOC: ER 19:02
DX: N45.1 Epididymitis (principal); N39.0 Urinary tract infection, site not specified; I10 Essential (primary) hypertension; E78.5 Hyperlipidemia, unspecified; E11.9 Type 2 diabetes mellitus without complications; Z79.899 Other long term (current) drug therapy; Z79.82 Long term (current) use of aspirin
CPT/HCPCS: 76870; 81001; 87086; 96372; 99284; J1885

== ENCOUNTER 2022-08-11 18:28 | Emergency (ER) | payer MEDICARE, OTHER ==
[~2022-08-11] VITALS: Ht 160 cm; Wt 72.1 kg
[~2022-08-11 18:28] MED LIST changes: +IBUP-1955 PO; +LEVO500T90 PO
--- NOTE | 2022-08-11 23:25 | NUR ---
BIBFAMILY WITH CC ABSCESS ON RIGHT BUTTOCK X1WEEK . 1CM IN SIZE. PATIENT IS AAOX4. ABLE TO MAKE NEEDS KNOWN. AMBULATORY. PLACED COMFORTABLY IN BED. VITALS CHECKED.
--- NOTE | 2022-08-11 23:35 | NUR ---
SEEN BY DR COBIAN AT BEDSIDE
[2022-08-12] MEDS ORDERED: LIDOCAINE 2%-EPI 1:100,000 30 ML VIAL TP ONE
[2022-08-12] MEDS ORDERED: CEPH500C2 PO (00:55)
[2022-08-12] MEDS ORDERED: CLIN300C12 PO (00:55)
--- NOTE | 2022-08-12 01:00 | NUR ---
Patient discharged to home in stable condition. RX Written and verbal after care instructions given. Patient verbalizes understanding of instruction.
--- NOTE | 2022-08-12 01:10 | NUR ---
Patient discharged to home in stable condition. RX Written and verbal after care instructions given. Patient verbalizes understanding of instruction.
[2022-08-12 01:15] VITALS: BP 121/75
== END 2022-08-12 01:15 | disposition home or self-care (01) ==
LOC: ER 18:32
DX: L02.31 Cutaneous abscess of buttock (principal); I10 Essential (primary) hypertension; E78.5 Hyperlipidemia, unspecified; E11.9 Type 2 diabetes mellitus without complications; Z79.899 Other long term (current) drug therapy; Z79.82 Long term (current) use of aspirin

== ENCOUNTER 2024-01-04 16:47 | Emergency (ER) | payer MEDICARE, OTHER ==
[~2024-01-04] VITALS: Ht 162.6 cm; Wt 48.1 kg
[~2024-01-04 16:47] MED LIST changes: +CEPH500C2 PO; +CLIN300C12 PO
[2024-01-04 17:30] LABS: BASOPHILS % (AUTO) 0.7 % (0.0-2.0); EOSINOPHILS # (AUTO) 0.1 K/uL (0.0-0.7); EOSINOPHILS % (AUTO) 1.8 % (0.0-6.0); HEMATOCRIT 30 % (39-51); LYMPHOCYTES # (AUTO) 1.2 K/uL (0.8-4.8); MEAN CORPUSCULAR HEMOGLOBIN 31 PG (26.0-33.0); MEAN CORPUSCULAR HGB CONC 33 g/dl (31.0-36.0); MEAN CORPUSCULAR VOLUME 93 fL (80-96); MONOCYTES # (AUTO) 0.5 K/uL (0.1-1.30); NEUTROPHILS # (AUTO) 3.5 K/uL (1.8-8.9); NEUTROPHILS % (AUTO) 66.5 % (43.0-81.0); PLATELET COUNT (AUTO) 318 K/uL (150-450); RED BLOOD CELL COUNT(AUTO) 3.21 MIL/uL (4.5-6.0); RED CELL DISTRIBUTION WIDTH 14.8 % (11.5-15.0); WHITE BLOOD COUNT (AUTO) 5.3 K/uL (4.3-11.0)
[2024-01-04 17:40] LABS: CALCIUM, SERUM 8.6 mg/dL (8.5-10.1); CARBON DIOXIDE 31 mmol/L (21-32); CHLORIDE 108 mmol/L (98-107); CREATININE 0.7 mg/dL (0.6-1.3); GLUCOSE 107 mg/dL (74-106); POTASSIUM 4.4 mmol/L (3.5-5.1); SODIUM SERUM 143 mmol/L (136-145); UREA NITROGEN, BLOOD 16 mg/dL (7-18)
[2024-01-04 17:52] LABS: ALANINE AMINOTRANSFERASE 25 U/L (12-78); ALBUMIN 3.7 g/dL (3.4-5.0); ALKALINE PHOSPHATASE 73 U/L (46-116); ASPARTATE AMINOTRANSFERASE 16 U/L (15-37); BILIRUBIN,DIRECT 0.2 mg/dL (0.0-0.2); LIPASE 35 U/L (16-77); NT-PRO BNP 60 pg/mL (0-125); TOTAL PROTEIN, SERUM 6.7 g/dL (6.4-8.2)
[2024-01-04] MEDS: IV NS 0.9% 1,000 ML BAG IV ONE (18:42)
[2024-01-04 20:07] VITALS: BP 121/66; TEMP 98; O2SAT 97
[2024-01-04 21:20] LABS: APPEARANCE,URINE SLIGHTLY CLOUDY (CLEAR); BILIRUBIN,URINE NEGATIVE (NEGATIVE); BLOOD, URINE 1+ Ery/uL (NEGATIVE); COLOR,URINE YELLOW (YELLOW); KETONES,URINE NEGATIVE (NEGATIVE); LEUKOCYTE ESTERASE ,URINE 2+ (NEGATIVE); NITRITE, URINE NEGATIVE (NEGATIVE); PROTEIN,URINE NEGATIVE (NEGATIVE); UGLUCOSE NEGATIVE (NEGATIVE); UROBILINOGEN,URINE 0.2 EU/dL (0.2)
[2024-01-04 21:23] LABS: WBC,URINE 21-50 /HPF (0-3)
[2024-01-04 21:24] LABS: ADD URINE CULTURE YES; BACTERIA,URINE 1+ /HPF (None Seen)
== END 2024-01-04 20:26 | disposition home or self-care (01) ==
LOC: ER 16:55
DX: R53.1 Weakness (principal); R42 Dizziness and giddiness; I10 Essential (primary) hypertension; E11.9 Type 2 diabetes mellitus without complications; E78.5 Hyperlipidemia, unspecified; N40.0 Benign prostatic hyperplasia without lower urinary tract symptoms; Z79.899 Other long term (current) drug therapy; Z20.822 Contact with and (suspected) exposure to COVID-19
CPT/HCPCS: 99285; 96360; 70450; 71045; 87426; 93005; 85025; 80048; 87086; 83690; 80076; 81001; 36415; 84484; 83880; 82962; J7030